=== PATIENT | female | born 1940 | race Caucasian/White ===

== ENCOUNTER → 2016-10-30 | Outpatient (CLI) | payer BC ==
--- NOTE | 2016-10-30 07:40 | REP ---
Clinical: Renal cysts. Comparison: Ultrasound dated 04/29/2014. MRI dated 07/14/2014. Findings: The patient is again noted to be status post left nephrectomy with normal appearance to the left renal fossa. The right kidney measures 12.2 x 4.0 x 5.3 cm and appears echogenic without hydronephrosis. Multiple simple appearing right renal cysts identified with upper pole cyst measuring 2.1 cm maximal diameter, mid/lower pole cyst measuring 3.1 cm maximal diameter, and lower pole cyst measuring 6.1 cm maximal diameter. No obvious renal mass lesions or significant complex cyst identified. The bladder is unremarkable. There is a complex cystic lesion in the left adnexa measuring 3.2 x 2.3 x 2.2 cm which is otherwise nonspecific and may represent ovarian cyst. No pelvic free fluid. Impression: 1. Simple appearing right renal cysts up to 6.1 cm along with evidence for chronic medical renal disease and no evidence for hydronephrosis. 2. 3.2 cm complex cystic lesion in the left adnexa possibly ovarian in nature. Signed by Rey Alarcon MD 10/30/2016 07:32 A
== END ==
LOC: M RAD 06:52
PROVIDERS: ATTEND Internal Medicine Nephrology
DX: N18.3 Chronic kidney disease, stage 3 (moderate) (principal); I15.0 Renovascular hypertension; Z85.528 Personal history of other malignant neoplasm of kidney; N28.1 Cyst of kidney, acquired

== ENCOUNTER → 2017-01-18 | Outpatient (CLI) | payer BC ==
--- NOTE | 2017-01-18 11:19 | REP ---
Clinical: Left ovarian cyst. Technique: Transabdominal pelvic ultrasound followed by transvaginal examination for better evaluation of the endometrium and adnexa with color Doppler evaluation of the ovaries. Findings: Heterogeneous anteverted uterus measures 6.1 x 1.6 x 4.1 cm. The endometrial complex measures 1.6 mm thickness and findings are normal for post menopausal state. No discrete uterine or endometrial abnormalities appreciated. The bilateral ovaries are normal in vascularity without torsion. Right ovary measures 3.3 x 1.4 x 1.2 cm; RI equals 0.36. Left ovary measures 4.9 x 2.6 x 4.1 cm and includes a 3.5 cm septated complex cyst; RI equals 0.37. No pelvic fluid or adnexal mass lesion. Impression: Normal age appropriate uterus and endometrium. 3.5 cm complex septated left ovarian cyst. Signed by Rey Alarcon MD 01/18/2017 11:10 A
== END ==
LOC: M RAD 09:39
PROVIDERS: ATTEND Family Medicine
DX: N83.202 Unspecified ovarian cyst, left side (principal)

== ENCOUNTER → 2017-02-12 | Outpatient (CLI) | payer BC ==
[~2017-02-12] MED LIST: METHACHOLINE KIT (J7674) INH ONE
--- NOTE | 2017-02-12 08:16 | PFTRPT ---
Tech: Divina VICTOR RRT Age: 76 Sex: Female Race: Height: 59.50 Inches Weight: 169.00 Lbs BSA: 1.73 Diagnosis: R06.02 METHACHOLINE CHALLENGE REPORT: ORDERING PROVIDER: Sesar Jerez MD DATE OF SERVICE: 02/12/17 INTERPRETATION: The study was of excellent technical quality. Under protocol, methacholine was administered. At a dose of 0.025 mg (0.125 CDUs), a 22% decline in the FEV1 was noted. No PC20 was calculated. low rates returned to better than baseline post bronchodilator administration. IMPRESSION: Positive methacholine challenge study. MTDD
== END ==
LOC: M CARPUL 07:26
PROVIDERS: ATTEND Internal Medicine Pulmonary Disease
DX: R06.02 Shortness of breath (principal)
CPT/HCPCS: 94070; J7674

== ENCOUNTER → 2017-02-21 | Outpatient (CLI) | payer BC ==
--- NOTE | 2017-02-21 09:53 | REP ---
Chest two views HISTORY: Shortness of breath Comparison: 01/31/2015 A minimal increase in interstitial markings is present in the lungs consistent with chronic interstitial change. The heart is normal in size. The pulmonary vasculature is normal in appearance. Degenerative change is present in the thoracic spine. There is partial fusion of the thoracic vertebral bodies. IMPRESSION: Chronic interstitial change. Signed by Benson Peralta MD 02/21/2017 09:45 A
== END ==
LOC: M SMT 09:05
PROVIDERS: ATTEND Internal Medicine Pulmonary Disease
DX: R06.02 Shortness of breath (principal)

== ENCOUNTER → 2017-03-26 | Outpatient (CLI) | payer BC | LOC: M SMT 08:06 | PROVIDERS: ATTEND Family Medicine | DX: E03.9 Hypothyroidism, unspecified (principal); I10 Essential (primary) hypertension ==

== ENCOUNTER → 2017-04-16 | Outpatient (CLI) | payer BC ==
--- NOTE | 2017-04-16 13:29 | REP ---
MR LUMBAR SPINE WITHOUT CONTRAST: HISTORY: Back pain. Decreased signal intensity on T2-weighted images is present in the lumbar intervertebral discs. The discs are decreased in height. These findings are consistent with disc degeneration. Disc bulges are present at the T11-12 and T12-L1 levels. There is mild effacement of the thecal sac without spinal cord compression. The neural foramina are patent on sagittal images. A diffuse disc bulge is present at the L1-2 level. There is hypertrophy of the ligamenta flava and posterior articulating facets. These findings produce minimal central canal stenosis. The L1 nerves exit the neural foramina without compression. A diffuse disc bulge is present at the L2-3 level. There is hypertrophy of the ligamenta flava and the posterior articulating facets. There are 3 mm of grade 1 spondylolisthesis of L2 on 3. These findings produce mild central canal stenosis. The L2 nerves exit the neural foramina without compression. A diffuse disc bulge with associated osteophyte formation is present at the L3-4 level. There is hypertrophy of the ligamenta flava and posterior articulating facets. These findings produce minimal central canal stenosis. The L3 nerves exit the neural foramina without compression. A diffuse disc bulge with associated osteophyte formation is present at the L4-5 level. There is hypertrophy of the ligamenta flava and posterior articulating facets. These findings produce mild central canal stenosis. There is compression of the L4 nerves in the neural foramina. A diffuse disc bulge is present at the L5-S1 level. There is hypertrophy of the ligamenta flava and posterior articulating facets. These findings produce minimal central canal stenosis. There is compression of the L5 nerves in the neural foramina. The conus medullaris is normal in appearance terminating at the level of the T12-L1 intervertebral disc. Increased signal intensity on T2 weighted images is present in the endplates of the L2 through S1 vertebral bodies. This represents degenerative change. IMPRESSION: 1. Minimal central canal stenosis at the L1-2 and L5-S1 levels secondary to disc bulge ligamentous and facet hypertrophy. There is compression of the L5 nerves in the neural foramina. 2. Mild central canal stenosis at the L2-3 level secondary to disc bulge, ligamentous and facet hypertrophy and grade 1 spondylolisthesis. 3. Minimal central canal stenosis at the L3-4 level secondary to disc bugle, ligamentous and facet hypertrophy and osteophyte formation. 4. Mild central canal stenosis at the L4-5 level secondary to disc bulge, ligamentous and facet hypertrophy and osteophyte formation. There is compression of the L4 nerves in the neural foramina. Signed by Benson Peralta MD 04/16/2017 01:46 P
--- NOTE | 2017-04-16 13:34 | REP ---
MR SACRUM WITHOUT CONTRAST: HISTORY: Back pain. The L4-5 and L5-S1 intervertebral discs are decreased in height consistent with disc degeneration. A diffuse disc bulge is present at the L5-S1 level. There is hypertrophy of the ligamenta flava and posterior articulating facets. These findings produce minimal central canal stenosis. There is compression of the L5 nerves in the neural foramina. Increased signal intensity on T2-weighted images is present in the sacrum and right iliac bone adjacent to the sacroiliac joints. This represents degenerative change. IMPRESSION: Minimal central canal stenosis at the L5-S1 level secondary to disc bulge, ligamentous and facet hypertrophy. There is compression of the L5 nerves in the neural foramina. Signed by Benson Peralta MD 04/16/2017 01:47 P
== END ==
LOC: M RAD 09:32
PROVIDERS: ATTEND Internal Medicine Nephrology
DX: M54.5 Low back pain (principal)

== ENCOUNTER → 2017-04-18 | Outpatient (CLI) | payer BC ==
[2017-04-18 14:38] LABS: FREE T4 0.96 NG/DL (0.76-1.46)
== END ==
LOC: M SMT 09:12
PROVIDERS: ATTEND Family Medicine
DX: E03.9 Hypothyroidism, unspecified (principal)

== ENCOUNTER → 2017-06-14 | Outpatient (CLI) | payer BC ==
[2017-06-14 14:38] LABS: FREE T4 1.11 NG/DL (0.76-1.46)
== END ==
LOC: M SMT 08:04
PROVIDERS: ATTEND Physician Assistant Medical
DX: E03.9 Hypothyroidism, unspecified (principal)

== ENCOUNTER → 2017-12-05 | Outpatient (CLI) | payer BC ==
[2017-12-05 14:15] LABS: BLOOD UREA NITROGEN 31 MG/DL (7-18)
[2017-12-05 14:15] LABS: CREATININE FOR GFR 1.57 MG/DL (0.55-1.30); GLOMERULAR FILTRATION RATE 34.1 (>39)
== END ==
LOC: M SMT 08:16
DX: Z01.812 Encounter for preprocedural laboratory examination (principal)
CPT/HCPCS: 82565

== ENCOUNTER → 2018-03-25 | Outpatient (CLI) | payer BC ==
[2018-03-25 11:02] LABS: BASO % 0.4 % (0.0-1.0); EOS # 0.3 10^3/uL (0.0-0.50); EOS % 2.7 % (0.0-3.0); HEMATOCRIT 44.1 % (36.0-47.0); HEMOGLOBIN 13.9 g/dl (12.0-15.5); IMMATURE GRANULOCYTE % 0.3 % (0-3.0); LYMPH # 2.6 10^3/uL (1.5-4.5); LYMPH % 28.1 % (24.0-44.0); MEAN CORPUSCULAR HEMOGLOBIN 28.3 pg (27.0-33.0); MEAN CORPUSCULAR HGB CONC 31.5 g/dl (32.0-36.5); MEAN CORPUSCULAR VOLUME 89.6 fl (80.0-96.0); MONO # 0.4 10^3/uL (0.0-0.8); NEUTROPHILS # 5.9 10^3/uL (1.8-7.7); NEUTROPHILS % 64.5 % (36.0-66.0); PLATELET COUNT, AUTOMATED 300 10^3/uL (150-450); RED BLOOD COUNT 4.92 10^6/uL (4.00-5.40); RED CELL DISTRIBUTION WIDTH 13.8 % (11.5-14.5); WHITE BLOOD COUNT 9.2 10^3/uL (4.0-10.0)
[2018-03-25 12:34] LABS: ALBUMIN 4.1 GM/DL (3.2-5.2); ALKALINE PHOSPHATASE 85 U/L (45-117); ALT/SGPT 31 U/L (12-78); ANION GAP 9 MEQ/L (8-16); AST/SGOT 24 U/L (7-37); BILIRUBIN,TOTAL 0.4 MG/DL (0.2-1.0); BLOOD UREA NITROGEN 29 MG/DL (7-18); CALCIUM LEVEL 9.7 MG/DL (8.8-10.2); CARBON DIOXIDE LEVEL 27 MEQ/L (21-32); CHLORIDE LEVEL 104 MEQ/L (98-107); CHOLESTEROL LEVEL 185 MG/DL (<200); CREATININE FOR GFR 1.81 MG/DL (0.55-1.30); FREE T4 1.11 NG/DL (0.76-1.46); GLOMERULAR FILTRATION RATE 28.9 (>39); GLUCOSE, FASTING 84 MG/DL (70-100); HDL CHOLESTEROL 53 MG/DL (>40); LDL CHOLESTEROL 94 MG/DL (<100); NON-HDL-C 132 MG/DL; SODIUM LEVEL 140 MEQ/L (136-145); TOTAL PROTEIN 7.3 GM/DL (6.4-8.2); TRIGLYCERIDES LEVEL 191 MG/DL (<150)
[2018-03-25 15:50] LABS: ALBUMIN/GLOBULIN RATIO 1.28 (1.00-1.93)
[2018-03-25 16:05] LABS: URIC ACID 5.1 MG/DL (2.6-6.0)
== END ==
LOC: M SMT 08:36
DX: I10 Essential (primary) hypertension (principal); E03.9 Hypothyroidism, unspecified; M10.9 Gout, unspecified
CPT/HCPCS: 84443

== ENCOUNTER 2018-04-24 07:10 | Day surgery (SDC) | payer BC ==
[2018-04-24] MEDS: NS 1,000 ML IV (06:00)
[2018-04-24] MEDS ORDERED: PROPOFOL 200 MG/20 ML VIAL As Ordered (07:16)
[2018-04-24] MEDS ORDERED: fentaNYL 100 MCG/2 ML INJECTION (J3010) As Ordered (07:16)
[2018-04-24] MEDS ORDERED: LIDOCAINE 2% INJ 100 MG/5 ML SDV (FOR ANES.) As Ordered (07:16)
== END 2018-04-24 08:35 | disposition home or self-care (01) ==
LOC: M OPP 07:10
DX: Z12.11 Encounter for screening for malignant neoplasm of colon (principal); Z86.010 Personal history of colon polyps; D12.5 Benign neoplasm of sigmoid colon; D12.3 Benign neoplasm of transverse colon; D12.0 Benign neoplasm of cecum; D12.1 Benign neoplasm of appendix; K57.30 Diverticulosis of large intestine without perforation or abscess without bleeding; R13.10 Dysphagia, unspecified; K44.9 Diaphragmatic hernia without obstruction or gangrene; K31.89 Other diseases of stomach and duodenum; I10 Essential (primary) hypertension; E78.5 Hyperlipidemia, unspecified; M10.9 Gout, unspecified; E03.9 Hypothyroidism, unspecified; M19.90 Unspecified osteoarthritis, unspecified site; F41.9 Anxiety disorder, unspecified; R51 Headache; Z78.0 Asymptomatic menopausal state; J45.909 Unspecified asthma, uncomplicated; J44.9 Chronic obstructive pulmonary disease, unspecified; R06.83 Snoring; R06.02 Shortness of breath; G47.30 Sleep apnea, unspecified; N28.1 Cyst of kidney, acquired; Z85.528 Personal history of other malignant neoplasm of kidney; Z90.5 Acquired absence of kidney; Z98.1 Arthrodesis status; Z87.891 Personal history of nicotine dependence; Z88.8 Allergy status to other drugs, medicaments and biological substances; Z88.5 Allergy status to narcotic agent; Z79.899 Other long term (current) drug therapy
CPT/HCPCS: 45385

== ENCOUNTER → 2018-06-02 | Outpatient (REF) | payer BC ==
[2018-06-02 19:02] LABS: TOTAL PROTEIN 7.2 GM/DL (6.4-8.2)
[2018-06-02 19:05] LABS: CREATININE,RANDOM URINE 47.2 MG/DL; TOTAL PROTEIN,RANDOM URINE 314.2 MG/DL (0.0-12.0); URINE TOTAL PROTEIN 314.2 MG/DL (0-12)
[2018-06-03 13:43] LABS: ALBUMIN % 60.8 % (55.8-66.1); ALPHA-1-GLOBULIN % 4.5 % (2.9-4.9); ALPHA-2-GLOBULINS % 12.1 % (7.1-11.8); BETA-2-GLOBULINS % 4.2 % (3.2-6.5); GAMMA GLOBULIN % 12.4 % (11.1-18.8)
[2018-06-03 13:44] LABS: ALBUMIN 4.38 GM/DL (3.29-5.55); ALPHA-1-GLOBULINS 0.32 GM/DL (0.17-0.41); ALPHA-2-GLOBULINS 0.87 GM/DL (0.42-0.99); BETA-1-GLOBULINS 0.43 GM/DL (0.28-0.60); GAMMA GLOBULINS 0.89 GM/DL (0.65-1.58)
[2018-06-04 08:59] LABS: UPEP INTERPRETATION NO M-SPIKE NOTED; URINE VOLUME RANDOM ML
[2018-06-05 00:42] LABS: FREE KAPPA LIGHT CHAINS SERUM 37.8 mg/L (3.3-19.4); FREE LAMBDA LIGHT CHAINS SERUM 21.5 mg/L (5.7-26.3); KAPPA/LAMBDA RATIO SERUM 1.76 (0.26-1.65)
== END ==
LOC: M LAB REF 17:17
DX: R80.9 Proteinuria, unspecified (principal)

== ENCOUNTER → 2018-09-15 | Outpatient (REF) | payer BC ==
[~2018-09-15] MED LIST changes: +ALLO10TA PO; +ARNU1INH; +ATOR1TAB21 PO; +CALCCHW8 PO; +CART120C PO; +FISH120016 PO; +LEVO100T5 PO; +LOSA100T50 PO; +MAGN250T7 PO; -METHACHOLINE KIT (J7674) INH ONE; +MULT1TAB10 PO; +TURM500C PO; +VENL75CA47 PO; +VENTAER INH
[2018-09-15 13:47] LABS: COMPLEMENT C3 110 MG/DL (90-180); COMPLEMENT C4 26 MG/DL (10-40)
[2018-09-15 13:59] LABS: HEPATITIS B SURFACE ANTIBODY NEGATIVE (POSITIVE)
[2018-09-15 15:14] LABS: HEPATITIS B SURFACE ANTIGEN NEGATIVE (NEGATIVE)
[2018-09-15 15:39] LABS: HEPATITIS C VIRUS ABY INDEX < 0.0 INDEX (<0.8)
[2018-09-15 15:41] LABS: HEPATITIS B CORE ANTIBODY IGM NEGATIVE (NEGATIVE)
[2018-09-19 00:07] LABS: ANCA-ATYPICAL <1:20 titer (Neg:<1:20); ANTI DOUBLE STRAND-DNA AB <1 IU/mL (0-9); ANTINUCLEAR ANTIBODIES DIRECT Negative (Negative); CYTOPLASMIC NEUTROP AB ANCA-C <1:20 titer (Neg:<1:20); PERINUCLEAR AB ANCA-P <1:20 titer (Neg:<1:20)
== END ==
LOC: M LAB REF 13:15
PROVIDERS: ATTEND Internal Medicine Nephrology
DX: R80.9 Proteinuria, unspecified (principal)

== ENCOUNTER → 2018-09-19 | Outpatient (REF) | payer BC ==
[2018-09-19 14:56] LABS: CREATININE 24 HOUR, URINE 923.8 MG/24HR (600-1800); CREATININE, URINE 74.5 MG/DL; TOTAL PROTEIN 24 HOUR URINE 2332.4 MG/24HR (50-150); URINE TOTAL PROTEIN 188.1 MG/DL (0-12)
== END ==
LOC: M LAB REF 13:15
PROVIDERS: ATTEND Internal Medicine Nephrology
DX: R80.9 Proteinuria, unspecified (principal)

== ENCOUNTER → 2019-03-18 | Outpatient (REF) | payer BC ==
[2019-03-18 14:44] LABS: CHOLESTEROL RISK RATIO 3.217 (<5); FREE T4 1.29 NG/DL (0.76-1.46)
[2019-03-18 14:51] LABS: TOTAL T3 85.5 NG/DL (60.0-181.0)
== END ==
LOC: M LAB REF 13:48
PROVIDERS: ATTEND Family Medicine
DX: I10 Essential (primary) hypertension (principal); E03.9 Hypothyroidism, unspecified

== ENCOUNTER → 2019-07-23 | Outpatient (CLI) | payer BC ==
--- NOTE | 2019-07-24 02:54 | REP ---
Clinical: Renal cyst. Technique: Real time petersen scale and color evaluation using curved array transducer. Findings: The patient is known to be status post left nephrectomy. The right kidney measures 12.6 x 5.2 x 5.7 cm and appears hyperechoic suggesting chronic medical renal disease without hydronephrosis. Two cortical cysts are identified measuring 3.5 cm and 6.5 cm diameter each. There is a 3.8 x 3.6 x 3.6 cm solid appearing mass along the lower pole which is concerning for neoplasm. Impression: 1. Cannot exclude 3.8 cm mass along the lower pole of the right kidney. 2. Two right simple cysts noted measuring 3.5 cm and 6.5 cm diameter. Electronically Signed by Rey Alarcon MD 07/24/2019 02:46 A
== END ==
LOC: M RAD 13:11
PROVIDERS: ATTEND Nurse Practitioner Family
DX: N28.1 Cyst of kidney, acquired (principal); Z90.5 Acquired absence of kidney; Z85.528 Personal history of other malignant neoplasm of kidney

== ENCOUNTER → 2019-08-01 | Outpatient (CLI) | payer BC ==
--- NOTE | 2019-08-04 16:48 | REP ---
MRI of the abdomen and kidneys without contrast: History: 3.8 cm mass lower pole right kidney on ultrasound. Past medical history of renal cell carcinoma status post left nephrectomy. Comparison MRI study abdomen without and with contrast is from September 16, 2015. Technique: Axial and coronal T1 and T2-weighted scans were obtained with and without fat saturation in the usual fashion. Findings: The patient is status post left nephrectomy. There is broad-based post nephrectomy bulging of the left flank. There is left colonic diverticulosis. There is no evidence of mass or adenopathy in the nephrectomy bed. There are multiple right renal cysts most of which are simple and all of which are stable when compared with the the 2016 prior study. There are two complex lesions in the right kidney. These demonstrate low T2 and slightly increased T1 signal intensity. The larger of these measures 3.8 cm in diameter. There is a little larger having measured 3.2 cm in 2016. It is otherwise unchanged. The smaller measures 2.4 cm. Previously in 2016 this measured 1.9 cm in greatest diameter. It is otherwise unchanged . These are consistent with complex cysts. No mass lesion is observed. The largest simple cyst is in the lower pole measuring 6.8 cm in greatest diameter. Previously, this was 6.5 cm by my measurement. There is no evidence of lymphadenopathy. The study is otherwise unremarkable. The gallbladder surgically absent. Common bile duct is 9 mm in greatest diameter. No pancreatic or adrenal lesion is seen. T2-weighted scans demonstrate incidental note of a bilobed cystic lesion in the left adnexa with overall dimension of 5.3 cm. Consider pelvic sonography for further evaluation of this area. This is slightly more prominent than on the 2016 prior study as well. Impression: The previously noted complex cystic lesions in the right kidney have grown slightly in the interval since the 2016 prior study. There are multiple simple cysts in the right kidney. The patient is status post left nephrectomy. There is a bilobed cystic mass in the left ovary noted incidentally. Consider pelvic sonography. Electronically Signed by Luis Rogel MD 08/04/2019 04:38 P
== END ==
LOC: M RAD 11:23
PROVIDERS: ATTEND Nurse Practitioner Family
DX: D41.01 Neoplasm of uncertain behavior of right kidney (principal)

== ENCOUNTER → 2019-08-26 | Outpatient (REF) | payer BC ==
[2019-08-26 15:10] LABS: PERCENT SATURATION 17.6 % (13.2-45.0)
== END ==
LOC: M LAB REF 13:06
PROVIDERS: ATTEND Nurse Practitioner Family
DX: D50.9 Iron deficiency anemia, unspecified (principal)

== ENCOUNTER → 2020-11-08 | Outpatient (CLI) | payer BC, MEDICARE ==
--- NOTE | 2020-11-08 13:10 | REP ---
INDICATION: CYST OF KIDNEY. COMPARISON: 07/23/2019. TECHNIQUE: Real-time sonographic evaluation of the right kidney is performed. FINDINGS: There has been a left nephrectomy. There is no right hydronephrosis. The right kidney measures 14.8 x 6.9 x 6.2 cm. In the upper pole of the right kidney there are 2 anechoic simple benign cysts, measuring 3.8 x 3.5 x 3.8 cm and 6.2 x 6.0 x 5.7 cm. In the lower pole the right kidney there is a hypoechoic mass which measures approximately 3.7 cm in diameter. There is internal blood flow with Doppler evaluation. This is unchanged since the prior ultrasound. This is suspicious for renal cell carcinoma. There is an adjacent hypoechoic nodule which measures 2.7 x 2.8 x 3.1 cm. Correlating with the MRI of 08/01/2019 this probably represents a complex cyst. The urinary bladder is unremarkable. Ureteral jets are not visualized in the urinary bladder with Doppler color evaluation. There is no gross abnormality in the region of the left renal fossa. IMPRESSION: Solid mass lower pole right kidney suspicious for renal cell carcinoma 3.7 cm in diameter. Adjacent hypoechoic nodule is felt to most likely represent a complex cyst. Two simple benign cysts are seen in the upper pole of the right kidney. There is no right hydronephrosis. <Electronically signed by Chalino De Luna > 11/08/20 1531
== END ==
LOC: M RAD 11:25
PROVIDERS: ATTEND Nurse Practitioner Family
DX: N28.1 Cyst of kidney, acquired (principal); Z90.5 Acquired absence of kidney; N28.89 Other specified disorders of kidney and ureter

== ENCOUNTER → 2020-12-23 | Outpatient (CLI) | payer MEDICARE ==
--- NOTE | 2020-12-23 15:56 | REPMRS ---
Patient History The patient states she has not had a clinical breast exam in over a year. Patient is postmenopausal and has history of other cancer at age 65. No known family history of cancer. Patient states no breast complaints today. Patient has signed MRS History Sheet. Digital Woman Screen Mammo: December 23, 2020 - Exam #: [id number] Bilateral CC and MLO view(s) were taken. Technologist: Sherry Wellington Technologist Prior study comparison: December 02, 2019, bilateral digital mammo screening bilat, performed at [facility] [employer]. November 10, 2018, bilateral digital mammo screening bilat, performed at [facility] [employer]. November 08, 2017, bilateral digital mammo screening bilat, performed at [facility] [employer]. FINDINGS: There are scattered fibroglandular densities. Screening. Digital screening (2D) mammography was performed bilaterally in the CC and MLO projections. Additionally, breast tomosynthesis (3D mammography) was performed bilaterally in the CC and MLO projections. Todays exam was compared to the prior exam/exams. By history, the patient has no complaints of a palpable breast abnormality or other significant breast complaints. The breasts are unchanged in size and shape. There are no altaf-soft tissue densities or spiculated masses. There is no internal architectural distortion. Once again, stable benign appearing calcifications are seen.There are no suspicious altaf-calcific clusters. Skin thickening or nipple retraction is not present. IMPRESSION: BI-RADS Category 2- Benign Findings. There is no evidence of malignant alteration of the breasts. Followup examination recommended in one year. The Volpara volumetric breast density category is B, there are scattered areas of fibroglandular density. This mammogram was read with the assistance of [facility],an FDA approved computer aided detection system for mammography. The lifetime Tyrer-Cuzick score is 1.7% Negative x-ray reports should not delay surgical consultation if a dominant or clinically suspicious mass is present. Not all breast cancers can be identified by mammography. Therefore, we recommend that you continue to perform regular breast self-examination and physical examination and then promptly contact your physician of any concerns or changes. Adenosis and dense breasts may obscure an underlying neoplasm. Assessment: BI-RADS/ACR category 2 mammogram. Benign Findings. Recommendation Routine screening mammogram of both breasts in 1 year. Electronically Signed By: Luke Villafana DO 12/23/20 1808
== END ==
LOC: M WHC 14:16
PROVIDERS: ATTEND Family Medicine
DX: Z12.31 Encounter for screening mammogram for malignant neoplasm of breast (principal); Z85.9 Personal history of malignant neoplasm, unspecified; R92.1 Mammographic calcification found on diagnostic imaging of breast

== ENCOUNTER → 2021-03-08 | Outpatient (REF) | payer MEDICARE | LOC: M LAB REF 16:53 | PROVIDERS: ATTEND Nurse Practitioner Family | DX: E83.42 Hypomagnesemia (principal) ==

== ENCOUNTER → 2021-06-14 | Outpatient (REF) | payer MEDICARE ==
[~2021-06-14] MED LIST changes: +AMLO1TAB25 PO; +CLAR10CA3 PO; +CVS1CAP2 PO; +FAMO40TA3 PO; +FLON1SPR NARES; +FLUT1BLS4 INH; +HYDR-3490 PO; +LOSA100T45 PO; -LOSA100T50 PO; +MAGN64TASA PO; +METO1TAB32 PO; +RENATAB6 PO
== END ==
LOC: M LAB REF 12:38
PROVIDERS: ATTEND Nurse Practitioner Family
DX: E83.42 Hypomagnesemia (principal)

== ENCOUNTER → 2021-07-05 | Outpatient (CLI) | payer MEDICARE ==
[~2021-07-05] MED LIST changes: +FLUT1BLS4; -FLUT1BLS4 INH; -LOSA100T45 PO; +LOSA100T50 PO; +MAGN64TASA; -MAGN64TASA PO; +METO1TAB32; -METO1TAB32 PO; +RENATAB6; -RENATAB6 PO
== END ==
LOC: M LABSMTC 10:14
PROVIDERS: ATTEND Anesthesiology
DX: Z01.812 Encounter for preprocedural laboratory examination (principal); Z20.822 Contact with and (suspected) exposure to COVID-19

== ENCOUNTER 2021-07-10 11:44 | Day surgery (SDC) | payer MEDICARE ==
[~2021-07-10] VITALS: Ht 152.4 cm; Wt 79.3 kg
[~2021-07-10 11:44] MED LIST changes: +CYCLOPENTOLATE 1% OPHTH SOLN 2 ML BTL OS SCH; -FLUT1BLS4; +FLUT1BLS4 INH; +LIDOCAINE 1% SDV 5ML VIAL As Ordered ONE; +LOSA100T45 PO; -LOSA100T50 PO; +LR 1,000 ML IV SCH; -MAGN64TASA; +MAGN64TASA PO; -METO1TAB32; +METO1TAB32 PO; +PHENYLEPHRINE 2.5% OPHTH SOL 2ML OS SCH; -RENATAB6; +RENATAB6 PO; +TETRACAINE 0.5% OPHTH SOLN 4ML OS SCH; +UNRESOLVED CLARIFICATION ENTRY XX SCH
[2021-07-10] MEDS ORDERED: FLURBIPROFEN 0.03% OPHTH SOLN 2.5 ML OS SCH (13:30)
[2021-07-10] MEDS ORDERED: MIDAZOLAM INJ 2MG/2ML VIAL (J2250 PER 1MG) As Ordered ONE (14:53)
[2021-07-10] MEDS ORDERED: fentaNYL 100 MCG/2 ML INJECTION As Ordered ONE (14:53)
[2021-07-10 15:30] VITALS: BP 171/80
== END 2021-07-10 15:45 | disposition home or self-care (01) ==
LOC: M SDC 11:44
PROVIDERS: ATTEND Ophthalmology
DX: H25.12 Age-related nuclear cataract, left eye (principal); I10 Essential (primary) hypertension; J45.909 Unspecified asthma, uncomplicated; G47.33 Obstructive sleep apnea (adult) (pediatric); E03.9 Hypothyroidism, unspecified; K21.9 Gastro-esophageal reflux disease without esophagitis; F41.9 Anxiety disorder, unspecified; Z79.899 Other long term (current) drug therapy; Z79.51 Long term (current) use of inhaled steroids; Z88.5 Allergy status to narcotic agent; Z88.8 Allergy status to other drugs, medicaments and biological substances
CPT/HCPCS: 66984; J2250; J3010; V2632

== ENCOUNTER 2021-07-31 08:38 | Day surgery (SDC) | payer MEDICARE ==
[~2021-07-31] VITALS: Ht 152.4 cm; Wt 80.3 kg
[~2021-07-31 08:38] MED LIST changes: -CYCLOPENTOLATE 1% OPHTH SOLN 2 ML BTL OS SCH; +DUOVISC (0.50ML VISCOAT/0.85ML PROVISC) OPHTH KIT As Ordered ONE; +MIDAZOLAM INJ 2MG/2ML VIAL (J2250 PER 1MG) As Ordered ONE; -PHENYLEPHRINE 2.5% OPHTH SOL 2ML OS SCH; -TETRACAINE 0.5% OPHTH SOLN 4ML OS SCH; -UNRESOLVED CLARIFICATION ENTRY XX SCH; +fentaNYL 100 MCG/2 ML INJECTION (J3010) As Ordered ONE
[2021-07-31] MEDS: TETRACAINE 0.5% OPHTH SOLN 4ML OD SCH ×2 (10:24→10:25)
[2021-07-31] MEDS: FLURBIPROFEN 0.03% OPHTH SOLN 2.5 ML OD SCH ×2 (10:25→10:39)
[2021-07-31] MEDS: PHENYLEPHRINE 2.5% OPHTH SOL 2ML OD SCH ×2 (10:25→10:39)
[2021-07-31] MEDS: CYCLOPENTOLATE 1% OPHTH SOLN 2 ML BTL OD SCH ×2 (10:25→10:39)
[2021-07-31 12:28] VITALS: BP 146/76
== END 2021-07-31 12:28 | disposition home or self-care (01) ==
LOC: M SDC 08:38
PROVIDERS: ATTEND Ophthalmology
DX: H25.11 Age-related nuclear cataract, right eye (principal); I10 Essential (primary) hypertension; E78.5 Hyperlipidemia, unspecified; K21.9 Gastro-esophageal reflux disease without esophagitis; E03.9 Hypothyroidism, unspecified; M10.9 Gout, unspecified; G43.909 Migraine, unspecified, not intractable, without status migrainosus; J45.909 Unspecified asthma, uncomplicated; G47.33 Obstructive sleep apnea (adult) (pediatric); Z88.5 Allergy status to narcotic agent; Z88.8 Allergy status to other drugs, medicaments and biological substances; Z79.899 Other long term (current) drug therapy; Z85.528 Personal history of other malignant neoplasm of kidney
CPT/HCPCS: 66984; J2250; J3010; V2632

== ENCOUNTER → 2022-05-25 | Outpatient (CLI) | payer MEDICARE ==
[~2022-05-25] MED LIST changes: -DUOVISC (0.50ML VISCOAT/0.85ML PROVISC) OPHTH KIT As Ordered ONE; -LIDOCAINE 1% SDV 5ML VIAL As Ordered ONE; -LR 1,000 ML IV SCH; -MIDAZOLAM INJ 2MG/2ML VIAL (J2250 PER 1MG) As Ordered ONE; -fentaNYL 100 MCG/2 ML INJECTION (J3010) As Ordered ONE
== END ==
LOC: M WHC 09:22
PROVIDERS: ATTEND Family Medicine
DX: Z12.31 Encounter for screening mammogram for malignant neoplasm of breast (principal); R92.1 Mammographic calcification found on diagnostic imaging of breast; M85.851 Other specified disorders of bone density and structure, right thigh; M85.852 Other specified disorders of bone density and structure, left thigh

== ENCOUNTER → 2022-06-11 | Outpatient (CLI) | payer MEDICARE | LOC: M LABSMTC 11:20 | PROVIDERS: ATTEND Anesthesiology | DX: Z01.812 Encounter for preprocedural laboratory examination (principal); Z11.52 Encounter for screening for COVID-19 ==

== ENCOUNTER 2022-06-14 08:31 | Day surgery (SDC) | payer MEDICARE ==
[~2022-06-14] VITALS: Ht 144.8 cm; Wt 70.7 kg
[~2022-06-14 08:31] MED LIST changes: +NS 1,000 ML IV ONE
[2022-06-14] MEDS ORDERED: LIDOCAINE 2% 100MG/5ML SDV (FOR ANES.) As Ordered ONE (09:35)
[2022-06-14] MEDS ORDERED: propofoL 200 MG/20 ML VIAL As Ordered ONE ×2 (09:35→10:02)
[2022-06-14 10:57] VITALS: BP 144/77
== END 2022-06-14 10:57 | disposition home or self-care (01) ==
LOC: M OPP 08:31
PROVIDERS: ATTEND Surgery
DX: Z12.11 Encounter for screening for malignant neoplasm of colon (principal); Z86.010 Personal history of colon polyps; D12.6 Benign neoplasm of colon, unspecified; K29.70 Gastritis, unspecified, without bleeding; K22.4 Dyskinesia of esophagus; K44.9 Diaphragmatic hernia without obstruction or gangrene; G47.30 Sleep apnea, unspecified; I10 Essential (primary) hypertension; E78.00 Pure hypercholesterolemia, unspecified; J44.9 Chronic obstructive pulmonary disease, unspecified; E03.9 Hypothyroidism, unspecified; G43.909 Migraine, unspecified, not intractable, without status migrainosus; Z79.02 Long term (current) use of antithrombotics/antiplatelets; Z79.51 Long term (current) use of inhaled steroids; Z79.899 Other long term (current) drug therapy; Z98.84 Bariatric surgery status; Z88.6 Allergy status to analgesic agent; Z88.5 Allergy status to narcotic agent; Z87.891 Personal history of nicotine dependence

== ENCOUNTER 2022-11-11 13:20 | Inpatient (IN) | payer MEDICARE, OTHER ==
[~2022-11-11] VITALS: Ht 152.4 cm; Wt 70.4 kg
[~2022-11-11 13:20] MED LIST changes: -LOSA100T45 PO; +LOSA100T46 PO; -NS 1,000 ML IV ONE
[2022-11-11] MEDS ORDERED: PANTOPRAZOLE 40MG VIAL IV ONE (14:10)
[2022-11-11 14:16] LABS: BASO % 0.2 % (0.0-1.0); EOS % 0.3 % (0.0-3.0); HEMATOCRIT 30.8 % (36.0-47.0); LYMPH # 1.6 10^3/uL (1.5-5.0); LYMPH % 11.4 % (24.0-44.0); MEAN CORPUSCULAR HGB CONC 32.5 g/dl (32.0-36.5); MEAN CORPUSCULAR VOLUME 89.3 fl (80.0-96.0); MONO # 0.3 10^3/uL (0.0-0.8); MONO % 2.3 % (2.0-8.0); NEUTROPHILS # 11.9 10^3/uL (1.5-8.5); NEUTROPHILS % 85.5 % (36.0-66.0); PLATELET COUNT, AUTOMATED 310 10^3/uL (150-450); RED BLOOD COUNT 3.45 10^6/uL (4.00-5.40)
[2022-11-11 14:41] LABS: INR 1.06; PARTIAL THROMBOPLASTIN TIME 30.2 SECONDS (24.8-34.2)
[2022-11-11 15:00] LABS: RSV AMPLIFICATION NEGATIVE (NEGATIVE)
[2022-11-11 15:23] LABS: THYROID STIMULATING HORMONE 0.136 uIU/ML (0.55-4.78)
[2022-11-11 16:27] LABS: CK-MB VALUE MASS 1.4 NG/ML (<3.6); MB/CK RELATIVE INDEX 2.54 (< OR =4)
[2022-11-11 16:29] LABS: ALBUMIN 3.7 G/DL (3.2-5.2); BILIRUBIN,DIRECT 0.1 MG/DL (<0.4); BILIRUBIN,TOTAL 0.3 MG/DL (0.3-1.2); CALCIUM LEVEL 9.2 MG/DL (8.3-10.6); CREATININE FOR GFR 2.69 MG/DL (0.55-1.30); GLOMERULAR FILTRATION RATE 18.1 (>32); POTASSIUM SERUM 3.9 MMOL/L (3.5-5.1)
[2022-11-11] MEDS ORDERED: NS 500 ML IV ONE (16:35)
[2022-11-11] MEDS ORDERED: NS 1,000 ML IV SCH ×2 (16:35→18:30)
[2022-11-11 16:44] LABS: TOTAL PROTEIN 6.5 G/DL (5.7-8.2)
[2022-11-11] MEDS ORDERED: ACETAMINOPHEN TAB 650MG DOSE (2X325MG) PO PRN (18:15)
[2022-11-11 19:40] VITALS: BP 138/94
[2022-11-11] MEDS ORDERED: FAMO20TA5 PO (19:49)
[2022-11-11] MEDS ORDERED: LEVO88TA3 PO (19:49)
[2022-11-11] MEDS ORDERED: AMLO1TAB24 PO (19:49)
[2022-11-11] MEDS ORDERED: HOME MED LIST COMPLETE! XX SCH (19:50)
[2022-11-11] MEDS: metroNIDAZOLE 500 MG in IV 1 EA IV SCH (20:21)
[2022-11-11] MEDS: cefTRIAXone SOD 2 GM in D5W MINI-BAG PLUS 50 ML IV SCH (20:21)
[2022-11-11] MEDS: PANTOPRAZOLE 40MG VIAL IV SCH (20:21)
[2022-11-11] MEDS ORDERED: ALBUTEROL 90 MCG/ACT 8GM HFA INHALER INH PRN (21:35)
[2022-11-11 23:57] VITALS: BP 123/58
[2022-11-12] VITALS (9 sets, daily range): BP systolic 113–159; BP diastolic 55–70
[2022-11-12] MEDS: LEVOTHYROXINE 88MCG TABLET (0.088 MG) PO SCH (04:58)
[2022-11-12] MEDS: metroNIDAZOLE 500 MG in IV 1 EA IV SCH ×3 (04:58→20:28)
[2022-11-12 05:48] LABS: HEMATOCRIT 24.7 % (36.0-47.0); MEAN CORPUSCULAR HEMOGLOBIN 28.3 pg (27.0-33.0); MEAN CORPUSCULAR HGB CONC 31.6 g/dl (32.0-36.5); MEAN CORPUSCULAR VOLUME 89.5 fl (80.0-96.0); PLATELET COUNT, AUTOMATED 240 10^3/uL (150-450); RED BLOOD COUNT 2.76 10^6/uL (4.00-5.40); WHITE BLOOD COUNT 9.5 10^3/uL (4.0-10.0)
[2022-11-12 05:53] LABS: HEMOGLOBIN 7.8 g/dl (12.0-15.5)
[2022-11-12 06:25] LABS: BILIRUBIN,TOTAL 0.3 MG/DL (0.3-1.2); CALCIUM LEVEL 8.2 MG/DL (8.3-10.6); CREATININE FOR GFR 2.67 MG/DL (0.55-1.30); GLOMERULAR FILTRATION RATE 18.2 (>32); POTASSIUM SERUM 3.5 MMOL/L (3.5-5.1); TOTAL PROTEIN 5.6 G/DL (5.7-8.2)
[2022-11-12] MEDS: ADVAIR HFA 115/21MCG INHALER INH SCH ×2 (08:09→19:23)
[2022-11-12] MEDS: PANTOPRAZOLE 40MG VIAL IV SCH ×2 (09:21→20:28)
[2022-11-12] MEDS: VENLAFAXINE **XR** 75MG CAPSULE PO SCH (09:22)
[2022-11-12] MEDS: LACTOBACILLUS ACIDOPHILUS CAP (BACID) PO SCH (09:22)
[2022-11-12] MEDS: METOPROLOL SUCC *XL* 25MG TAB (TopROL *XL*) PO SCH (09:22)
[2022-11-12] MEDS: allopurinoL 100 MG TAB PO SCH (09:22)
[2022-11-12] MEDS: amLODIPine 5 MG TAB PO SCH (09:23)
[2022-11-12] MEDS: ATORVASTATIN 20 MG TAB PO SCH (09:24)
[2022-11-12 14:07] LABS: HEMATOCRIT 27.2 % (36.0-47.0); HEMOGLOBIN 8.9 g/dl (12.0-15.5)
[2022-11-12 14:29] LABS: THYROID STIMULATING HORMONE 0.067 uIU/ML (0.55-4.78)
[2022-11-12 14:30] LABS: FREE THYROXINE INDEX 4.4 % (1.3-4.8); T UPTAKE 49.9 % (22.5-37.0); THYROXINE (T4) 8.9 UG/DL (4.5-10.9)
[2022-11-12] MEDS: FAMOTIDINE 20 MG TAB PO SCH (20:28)
[2022-11-12] MEDS: cefTRIAXone SOD 2 GM in D5W MINI-BAG PLUS 50 ML IV SCH (20:29)
[2022-11-13] VITALS: BP 122/68
[2022-11-13 01:07] LABS: HEMOGLOBIN 8.4 g/dl (12.0-15.5)
[2022-11-13 04:00] VITALS: BP 115/56
[2022-11-13 05:30] LABS: BASO % 0.5 % (0.0-1.0); EOS # 0.2 10^3/uL (0.0-0.5); EOS % 2.4 % (0.0-3.0); HEMATOCRIT 25.8 % (36.0-47.0); HEMOGLOBIN 8.4 g/dl (12.0-15.5); LYMPH # 1.9 10^3/uL (1.5-5.0); LYMPH % 22.4 % (24.0-44.0); MEAN CORPUSCULAR HEMOGLOBIN 29.2 pg (27.0-33.0); MEAN CORPUSCULAR HGB CONC 32.6 g/dl (32.0-36.5); MEAN CORPUSCULAR VOLUME 89.6 fl (80.0-96.0); MONO # 0.6 10^3/uL (0.0-0.8); MONO % 6.8 % (2.0-8.0); NEUTROPHILS # 5.6 10^3/uL (1.5-8.5); NEUTROPHILS % 67.5 % (36.0-66.0); PLATELET COUNT, AUTOMATED 210 10^3/uL (150-450); RED BLOOD COUNT 2.88 10^6/uL (4.00-5.40); WHITE BLOOD COUNT 8.4 10^3/uL (4.0-10.0)
[2022-11-13] MEDS: LEVOTHYROXINE 88MCG TABLET (0.088 MG) PO SCH (05:48)
[2022-11-13] MEDS: metroNIDAZOLE 500 MG in IV 1 EA IV SCH ×4 (05:48→21:14)
[2022-11-13 06:04] LABS: ALBUMIN 3.1 G/DL (3.2-5.2); ALKALINE PHOSPHATASE 57 U/L (46-116); ALT/SGPT 15 U/L (7.0-40); AST/SGOT 19 U/L (<34); BILIRUBIN,TOTAL 0.4 MG/DL (0.3-1.2); BLOOD UREA NITROGEN 45 MG/DL (9-23); CALCIUM LEVEL 8.4 MG/DL (8.3-10.6); CARBON DIOXIDE LEVEL 22 MMOL/L (20-31); CHLORIDE LEVEL 113 MMOL/L (98-107); CREATININE FOR GFR 2.72 MG/DL (0.55-1.30); GLOMERULAR FILTRATION RATE 17.9 (>32); GLUCOSE, FASTING 105 MG/DL (74-106); MAGNESIUM LEVEL 1.8 MG/DL (1.8-2.4); POTASSIUM SERUM 3.5 MMOL/L (3.5-5.1); SODIUM LEVEL 143 MMOL/L (136-145); TOTAL PROTEIN 5.1 G/DL (5.7-8.2)
[2022-11-13 07:54] VITALS: BP 119/57
[2022-11-13] MEDS: ADVAIR HFA 115/21MCG INHALER INH SCH ×2 (07:56→19:58)
[2022-11-13 08:16] LABS: IRON (FE) 57 UG/DL (50-170); PERCENT SATURATION 24.8 % (13.2-45.0); TOTAL IRON BINDING CAPACITY 230 UG/DL (250-425)
[2022-11-13 08:19] LABS: FERRITIN 105.3 NG/ML (7.3-270.7); FOLATE > 24.0 NG/ML (>5.4); VITAMIN B12 LEVEL 306 PG/ML (211-911)
[2022-11-13] MEDS: METOPROLOL SUCC *XL* 25MG TAB (TopROL *XL*) PO SCH (08:21)
[2022-11-13] MEDS: PANTOPRAZOLE 40MG VIAL IV SCH ×2 (08:21→20:29)
[2022-11-13] MEDS: ATORVASTATIN 20 MG TAB PO SCH (08:21)
[2022-11-13] MEDS: LACTOBACILLUS ACIDOPHILUS CAP (BACID) PO SCH (08:21)
[2022-11-13] MEDS: amLODIPine 5 MG TAB PO SCH (08:21)
[2022-11-13] MEDS: allopurinoL 100 MG TAB PO SCH (08:21)
[2022-11-13] MEDS: VENLAFAXINE **XR** 75MG CAPSULE PO SCH (08:21)
[2022-11-13] MEDS ORDERED: FLUBLOK(EGG FREE)(QUAD)INFLUENZA VACC 0.5ML SYRINGE 18YRS & OLDER IM.IMMUN ONE (09:00)
[2022-11-13 15:15] VITALS: BP 148/65
[2022-11-13 19:04] LABS: HEMATOCRIT 24.7 % (36.0-47.0); HEMOGLOBIN 8.1 g/dl (12.0-15.5); MEAN CORPUSCULAR HEMOGLOBIN 29.6 pg (27.0-33.0); MEAN CORPUSCULAR HGB CONC 32.8 g/dl (32.0-36.5); MEAN CORPUSCULAR VOLUME 90.1 fl (80.0-96.0); PLATELET COUNT, AUTOMATED 216 10^3/uL (150-450); RED BLOOD COUNT 2.74 10^6/uL (4.00-5.40); WHITE BLOOD COUNT 8.8 10^3/uL (4.0-10.0)
[2022-11-13] MEDS: FAMOTIDINE 20 MG TAB PO SCH (20:29)
[2022-11-13] MEDS: cefTRIAXone SOD 2 GM in D5W MINI-BAG PLUS 50 ML IV SCH (20:29)
[2022-11-13 21:20] VITALS: BP 117/66
[2022-11-14] VITALS (7 sets, daily range): BP systolic 118–167; BP diastolic 54–76
[2022-11-14 00:54] LABS: HEMATOCRIT 23.1 % (36.0-47.0); HEMOGLOBIN 7.4 g/dl (12.0-15.5)
[2022-11-14] MEDS: metroNIDAZOLE 500 MG in IV 1 EA IV SCH ×3 (05:40→20:33)
[2022-11-14] MEDS: LEVOTHYROXINE 88MCG TABLET (0.088 MG) PO SCH (05:40)
[2022-11-14 07:33] LABS: BASO # 0.1 10^3/uL (0.0-0.2); BASO % 0.6 % (0.0-1.0); EOS # 0.3 10^3/uL (0.0-0.5); HEMATOCRIT 28.5 % (36.0-47.0); LYMPH # 1.9 10^3/uL (1.5-5.0); LYMPH % 21.3 % (24.0-44.0); MEAN CORPUSCULAR HEMOGLOBIN 29.6 pg (27.0-33.0); MEAN CORPUSCULAR HGB CONC 33.3 g/dl (32.0-36.5); MEAN CORPUSCULAR VOLUME 88.8 fl (80.0-96.0); MONO # 0.5 10^3/uL (0.0-0.8); NEUTROPHILS # 6.1 10^3/uL (1.5-8.5); NEUTROPHILS % 68.9 % (36.0-66.0); PLATELET COUNT, AUTOMATED 215 10^3/uL (150-450); RED BLOOD COUNT 3.21 10^6/uL (4.00-5.40); WHITE BLOOD COUNT 8.9 10^3/uL (4.0-10.0)
[2022-11-14 07:50] LABS: HEMOGLOBIN 9.5 g/dl (12.0-15.5)
[2022-11-14 07:58] LABS: CREATININE FOR GFR 2.5 MG/DL (0.55-1.30); GLOMERULAR FILTRATION RATE 19.7 (>32); POTASSIUM SERUM 3.2 MMOL/L (3.5-5.1)
[2022-11-14] MEDS: METOPROLOL SUCC *XL* 25MG TAB (TopROL *XL*) PO SCH (07:59)
[2022-11-14] MEDS: LACTOBACILLUS ACIDOPHILUS CAP (BACID) PO SCH (07:59)
[2022-11-14] MEDS: VENLAFAXINE **XR** 75MG CAPSULE PO SCH (07:59)
[2022-11-14] MEDS: ATORVASTATIN 20 MG TAB PO SCH (07:59)
[2022-11-14] MEDS: PANTOPRAZOLE 40MG VIAL IV SCH ×2 (07:59→19:43)
[2022-11-14] MEDS: allopurinoL 100 MG TAB PO SCH (08:00)
[2022-11-14] MEDS: ADVAIR HFA 115/21MCG INHALER INH SCH ×2 (08:16→20:24)
[2022-11-14] MEDS ORDERED: GOLYTELY SOLN 4000 ML BTL PO ONE (09:00)
[2022-11-14] MEDS: cefTRIAXone SOD 2 GM in D5W MINI-BAG PLUS 50 ML IV SCH (19:44)
[2022-11-14] MEDS: FAMOTIDINE 20 MG TAB PO SCH (19:44)
[2022-11-14] MEDS ORDERED: ONDANSETRON 4MG 2ML VIAL IV PRN (20:25)
[2022-11-15] MEDS: metroNIDAZOLE 500 MG in IV 1 EA IV SCH ×3 (04:02→21:52)
[2022-11-15] MEDS: LEVOTHYROXINE 88MCG TABLET (0.088 MG) PO SCH (05:05)
[2022-11-15 05:58] VITALS: BP 155/72
[2022-11-15 06:20] LABS: BASO % 0.4 % (0.0-1.0); EOS # 0.2 10^3/uL (0.0-0.5); EOS % 3.1 % (0.0-3.0); HEMATOCRIT 24.1 % (36.0-47.0); HEMOGLOBIN 8.2 g/dl (12.0-15.5); LYMPH # 1.8 10^3/uL (1.5-5.0); LYMPH % 23.2 % (24.0-44.0); MEAN CORPUSCULAR VOLUME 88.3 fl (80.0-96.0); MONO # 0.6 10^3/uL (0.0-0.8); MONO % 7.2 % (2.0-8.0); NEUTROPHILS # 5.1 10^3/uL (1.5-8.5); NEUTROPHILS % 65.6 % (36.0-66.0); PLATELET COUNT, AUTOMATED 197 10^3/uL (150-450); RED BLOOD COUNT 2.73 10^6/uL (4.00-5.40); WHITE BLOOD COUNT 7.7 10^3/uL (4.0-10.0)
[2022-11-15 07:07] LABS: CALCIUM LEVEL 8.2 MG/DL (8.3-10.6); CREATININE FOR GFR 2.45 MG/DL (0.55-1.30); GLOMERULAR FILTRATION RATE 20.1 (>32); POTASSIUM SERUM 2.9 MMOL/L (3.5-5.1)
[2022-11-15] MEDS: ADVAIR HFA 115/21MCG INHALER INH SCH ×2 (07:12→19:51)
[2022-11-15] MEDS ORDERED: POTASSIUM CHLORIDE 10MEQ SR TABLET PO ONE (08:00)
[2022-11-15] MEDS: PANTOPRAZOLE 40MG VIAL IV SCH ×2 (08:11→21:26)
[2022-11-15] MEDS: METOPROLOL SUCC *XL* 25MG TAB (TopROL *XL*) PO SCH (08:14)
[2022-11-15] MEDS: KCL 10MEQ/100ML SWI (KRUN) 10 MEQ in IV 1 EA IV SCH ×3 (08:14→10:16)
[2022-11-15] MEDS: ATORVASTATIN 20 MG TAB PO SCH (08:23)
[2022-11-15] MEDS: allopurinoL 100 MG TAB PO SCH (08:23)
[2022-11-15] MEDS: VENLAFAXINE **XR** 75MG CAPSULE PO SCH (08:23)
[2022-11-15] MEDS: LACTOBACILLUS ACIDOPHILUS CAP (BACID) PO SCH (08:23)
[2022-11-15] MEDS ORDERED: propofoL 200 MG/20 ML VIAL As Ordered ONE (13:52)
[2022-11-15] MEDS ORDERED: LIDOCAINE 2% 100MG/5ML SDV (FOR ANES.) As Ordered ONE (13:52)
[2022-11-15 15:10] VITALS: BP 146/72
[2022-11-15 18:27] LABS: BASO % 0.3 % (0.0-1.0); EOS # 0.2 10^3/uL (0.0-0.5); EOS % 2.1 % (0.0-3.0); HEMATOCRIT 27.8 % (36.0-47.0); HEMOGLOBIN 9.3 g/dl (12.0-15.5); LYMPH # 1.9 10^3/uL (1.5-5.0); LYMPH % 21.7 % (24.0-44.0); MEAN CORPUSCULAR HEMOGLOBIN 29.5 pg (27.0-33.0); MEAN CORPUSCULAR HGB CONC 33.5 g/dl (32.0-36.5); MEAN CORPUSCULAR VOLUME 88.3 fl (80.0-96.0); MONO # 0.6 10^3/uL (0.0-0.8); MONO % 6.4 % (2.0-8.0); NEUTROPHILS # 6.2 10^3/uL (1.5-8.5); NEUTROPHILS % 69.2 % (36.0-66.0); PLATELET COUNT, AUTOMATED 243 10^3/uL (150-450); RED BLOOD COUNT 3.15 10^6/uL (4.00-5.40)
[2022-11-15 18:44] LABS: CALCIUM LEVEL 8.3 MG/DL (8.3-10.6); CREATININE FOR GFR 2.29 MG/DL (0.55-1.30); GLOMERULAR FILTRATION RATE 21.8 (>32); POTASSIUM SERUM 3.4 MMOL/L (3.5-5.1)
[2022-11-15 20:30] VITALS: BP 104/58
[2022-11-15] MEDS: cefTRIAXone SOD 2 GM in D5W MINI-BAG PLUS 50 ML IV SCH (20:46)
[2022-11-15] MEDS: FAMOTIDINE 20 MG TAB PO SCH (20:46)
[2022-11-16 05:03] VITALS: BP 147/66
[2022-11-16] MEDS: LEVOTHYROXINE 88MCG TABLET (0.088 MG) PO SCH (05:14)
[2022-11-16] MEDS: metroNIDAZOLE 500 MG in IV 1 EA IV SCH (05:14)
[2022-11-16 06:17] LABS: BASO % 0.5 % (0.0-1.0); EOS # 0.3 10^3/uL (0.0-0.5); EOS % 3.2 % (0.0-3.0); HEMOGLOBIN 8.3 g/dl (12.0-15.5); LYMPH # 1.8 10^3/uL (1.5-5.0); LYMPH % 21.2 % (24.0-44.0); MEAN CORPUSCULAR HEMOGLOBIN 29.5 pg (27.0-33.0); MEAN CORPUSCULAR HGB CONC 33.2 g/dl (32.0-36.5); MONO # 0.6 10^3/uL (0.0-0.8); MONO % 7.3 % (2.0-8.0); NEUTROPHILS # 5.9 10^3/uL (1.5-8.5); NEUTROPHILS % 67.5 % (36.0-66.0); PLATELET COUNT, AUTOMATED 207 10^3/uL (150-450); RED BLOOD COUNT 2.81 10^6/uL (4.00-5.40); WHITE BLOOD COUNT 8.7 10^3/uL (4.0-10.0)
[2022-11-16 06:50] LABS: CALCIUM LEVEL 7.6 MG/DL (8.3-10.6); CREATININE FOR GFR 2.52 MG/DL (0.55-1.30); GLOMERULAR FILTRATION RATE 19.5 (>32); POTASSIUM SERUM 3.4 MMOL/L (3.5-5.1)
[2022-11-16] MEDS: ADVAIR HFA 115/21MCG INHALER INH SCH (07:24)
[2022-11-16] MEDS ORDERED: POTASSIUM CHLORIDE 10MEQ SR TABLET PO ONE (08:00)
[2022-11-16] MEDS: ATORVASTATIN 20 MG TAB PO SCH (08:09)
[2022-11-16] MEDS: PANTOPRAZOLE 40MG VIAL IV SCH (08:09)
[2022-11-16] MEDS: VENLAFAXINE **XR** 75MG CAPSULE PO SCH (08:10)
[2022-11-16] MEDS: LACTOBACILLUS ACIDOPHILUS CAP (BACID) PO SCH (08:10)
[2022-11-16] MEDS: allopurinoL 100 MG TAB PO SCH (08:10)
[2022-11-16 08:11] VITALS: BP 147/66
[2022-11-16] MEDS: METOPROLOL SUCC *XL* 25MG TAB (TopROL *XL*) PO SCH (08:11)
[2022-11-16] MEDS ORDERED: DOCU100C16 PO (09:15)
[2022-11-16] MEDS ORDERED: FERR325T3 PO (09:15)
== END 2022-11-16 12:35 | disposition home or self-care (01) | DRG 378 ==
LOC: M ED 13:20 → M ED INP 18:12 → M PCU 19:34 → M MSPAV 11-13 15:11
PROVIDERS: ADMIT Family Medicine; ATTEND Internal Medicine Nephrology
PROC: 30233N1 Transfusion of Nonautologous Red Blood Cells into Peripheral Vein, Percutaneous Approach (ICD-10-PCS; principal; 2022-11-12)
PROC: 0DJ08ZZ Inspection of Upper Intestinal Tract, Via Natural or Artificial Opening Endoscopic (ICD-10-PCS; 2022-11-15)
PROC: 0DJD8ZZ Inspection of Lower Intestinal Tract, Via Natural or Artificial Opening Endoscopic (ICD-10-PCS; 2022-11-15)
DX: K57.91 Diverticulosis of intestine, part unspecified, without perforation or abscess with bleeding (principal); N17.9 Acute kidney failure, unspecified; D62 Acute posthemorrhagic anemia; N18.4 Chronic kidney disease, stage 4 (severe); Z66 Do not resuscitate; K29.70 Gastritis, unspecified, without bleeding; K44.9 Diaphragmatic hernia without obstruction or gangrene; E79.0 Hyperuricemia without signs of inflammatory arthritis and tophaceous disease; F32.A Depression, unspecified; J45.909 Unspecified asthma, uncomplicated; K22.4 Dyskinesia of esophagus; E03.9 Hypothyroidism, unspecified; K64.8 Other hemorrhoids; D63.1 Anemia in chronic kidney disease; D12.6 Benign neoplasm of colon, unspecified; Z87.891 Personal history of nicotine dependence; R91.1 Solitary pulmonary nodule; I12.9 Hypertensive chronic kidney disease with stage 1 through stage 4 chronic kidney disease, or unspecified chronic kidney disease; E78.5 Hyperlipidemia, unspecified; Z79.890 Hormone replacement therapy; Z79.899 Other long term (current) drug therapy; Z88.5 Allergy status to narcotic agent; Z88.6 Allergy status to analgesic agent; Z88.8 Allergy status to other drugs, medicaments and biological substances; Z20.822 Contact with and (suspected) exposure to COVID-19; E87.6 Hypokalemia; Z90.5 Acquired absence of kidney

== ENCOUNTER 2023-03-07 21:17 | Emergency (ER) | payer MEDICARE ==
[~2023-03-07] VITALS: Ht 144.8 cm; Wt 68.6 kg
[~2023-03-07 21:17] MED LIST changes: +AMLO1TAB24 PO; +DOCU100C16 PO; +FAMO20TA5 PO; +FERR325T3 PO; +LEVO88TA3 PO
[2023-03-07] MEDS ORDERED: RENATAB6 PO (21:33)
[2023-03-08 02:04] VITALS: BP 147/64; TEMP 97.8; O2SAT 98
== END 2023-03-08 03:24 | disposition home or self-care (01) ==
LOC: M ED 21:17
DX: M25.561 Pain in right knee (principal); Z79.899 Other long term (current) drug therapy; Z88.8 Allergy status to other drugs, medicaments and biological substances; Z88.5 Allergy status to narcotic agent

== ENCOUNTER → 2023-05-28 | Outpatient (CLI) | payer MEDICARE | LOC: M WHC 13:37 | PROVIDERS: ATTEND Registered Nurse | DX: Z12.31 Encounter for screening mammogram for malignant neoplasm of breast (principal); R92.333 Mammographic heterogeneous density, bilateral breasts ==

== ENCOUNTER → 2024-04-03 | Outpatient (REF) | payer MEDICARE ==
[2024-04-03 18:09] LABS: FERRITIN 128.3 NG/ML (7.3-270.7); PERCENT SATURATION 28.7 % (13.2-45.0)
== END ==
LOC: M LAB REF 17:05
PROVIDERS: ATTEND Nurse Practitioner Family
DX: D64.9 Anemia, unspecified (principal)

== ENCOUNTER → 2024-05-05 | Outpatient (REF) | payer MEDICARE ==
[2024-05-05 20:02] LABS: FERRITIN 110.4 NG/ML (7.3-270.7)
== END ==
LOC: M LAB REF 17:20
PROVIDERS: ATTEND Nurse Practitioner Family
DX: D50.9 Iron deficiency anemia, unspecified (principal)

== ENCOUNTER → 2024-06-19 | Outpatient (CLI) | payer MEDICARE | LOC: M WHC 13:17 | PROVIDERS: ATTEND Registered Nurse | DX: Z12.31 Encounter for screening mammogram for malignant neoplasm of breast (principal); M85.851 Other specified disorders of bone density and structure, right thigh ==

== ENCOUNTER → 2024-06-26 | Outpatient (REF) | payer MEDICARE ==
[2024-06-26 20:11] LABS: PERCENT SATURATION 20.7 % (13.2-45.0)
[2024-06-26 20:14] LABS: FERRITIN 143.9 NG/ML (7.3-270.7)
== END ==
LOC: M LAB REF 17:20
PROVIDERS: ATTEND Nurse Practitioner Family
DX: D50.9 Iron deficiency anemia, unspecified (principal)

== ENCOUNTER → 2024-09-04 | Outpatient (REF) | payer MEDICARE ==
[2024-09-04 19:02] LABS: FERRITIN 148.3 NG/ML (7.3-270.7); PERCENT SATURATION 18.2 % (13.2-45.0)
== END ==
LOC: M LAB REF 17:03
PROVIDERS: ATTEND Nurse Practitioner Family
DX: D50.9 Iron deficiency anemia, unspecified (principal)

== ENCOUNTER → 2024-10-13 | Outpatient (REF) | payer MEDICARE ==
[2024-10-14 17:41] LABS: HEPATITIS B SURFACE ANTIBODY NEGATIVE (POSITIVE)
[2024-10-14 17:53] LABS: HEPATITIS B SURFACE ANTIGEN NEGATIVE (NEGATIVE)
[2024-10-14 18:14] LABS: HEPATITIS B CORE ANTIBODY IGM NEGATIVE (NEGATIVE); HEPATITIS C VIRUS ABY INDEX 0.04 INDEX (<0.8)
== END ==
LOC: M LAB REF 17:02
PROVIDERS: ATTEND Nurse Practitioner Family
DX: N18.5 Chronic kidney disease, stage 5 (principal); Z11.59 Encounter for screening for other viral diseases

== ENCOUNTER → 2024-10-23 | Outpatient (CLI) | payer MEDICARE ==
[~2024-10-23] MED LIST changes: +ONDANSETRON 4MG 2ML VIAL As Ordered ONE
[2024-10-23 08:18] VITALS: TEMP 97.8
[2024-10-23] MEDS: NS (Normal Saline) 0.9% 1,000 ML IV SCH (08:25)
[2024-10-23] MEDS: ceFAZolin SODIUM 2 GM in DEXTROSE 5% (D5W) ADV/MINI-BAG 50 ML IV ONE (09:20)
[2024-10-23] MEDS: MIDAZOLAM INJ 2MG/2ML VIAL IV PRN (09:20)
[2024-10-23] MEDS: fentaNYL 100 MCG/2 ML INJECTION IV PRN (09:21)
[2024-10-23] MEDS: ONDANSETRON 4MG 2ML VIAL IV STA (09:27)
[2024-10-23] MEDS: LIDOCAINE 1% MDV 20ML VIAL SC ONE (09:31)
[2024-10-23] MEDS: HEPARIN 1,000UNITS/ML 10ML VIAL (FOR RADIOLOGY & DIALYSIS ONLY) IV PRN (09:31)
[2024-10-23 10:00] VITALS: BP 125/57; O2SAT 96
== END ==
LOC: M IRPRO 08:14
PROVIDERS: ATTEND Nurse Practitioner Family
DX: N18.9 Chronic kidney disease, unspecified (principal)
CPT/HCPCS: 36561; 99152; C1894; J0690; J2250; J2405; J3010

== ENCOUNTER → 2024-11-04 | Outpatient (CLI) | payer MEDICARE ==
[~2024-11-04] MED LIST changes: -ONDANSETRON 4MG 2ML VIAL As Ordered ONE
== END ==
LOC: M RAD 09:07
PROVIDERS: ATTEND Registered Nurse
DX: M11.231 Other chondrocalcinosis, right wrist (principal); M19.041 Primary osteoarthritis, right hand; M19.011 Primary osteoarthritis, right shoulder; M25.711 Osteophyte, right shoulder

== ENCOUNTER 2025-04-19 05:49 | Observation (INO) | payer MEDICARE ==
[~2025-04-19] VITALS: Ht 144.8 cm; Wt 62.5 kg
[2025-04-19 06:20] LABS: VENOUS BASE EXCESS -2.3 (-2.0-2.0); VENOUS HCO3 23.1 MMOL/L (23.0-27.0); VENOUS O2 SATURATION 69.8 % (60.0-80.0); VENOUS PARTIAL PRESSURE CO2 41.9 mmHg (38.0-50.0); VENOUS PARTIAL PRESSURE O2 37.5 mmHg (30.0-50.0); VENOUS PH 7.359 UNITS (7.330-7.430); VENOUS STANDARD HCO3 22.0 MMOL/L; VENOUS TOTAL CO2 24.4 MMOL/L (24.0-28.0)
[2025-04-19 06:35] LABS: BASO # 0.1 10^3/uL (0.0-0.2); BASO % 0.6 % (0.0-1.0); EOS # 0.1 10^3/uL (0.0-0.5); EOS % 1.2 % (0.0-3.0); LYMPH # 1.6 10^3/uL (1.5-5.0); LYMPH % 15.1 % (24.0-44.0); MONO # 0.5 10^3/uL (0.0-0.8); MONO % 4.5 % (2.0-8.0); NEUTROPHILS # 8.4 10^3/uL (1.5-8.5); NEUTROPHILS % 78.2 % (36.0-66.0); PLATELET COUNT, AUTOMATED 266 10^3/uL (150-450)
[2025-04-19 07:00] LABS: ALT/SGPT 20.0 U/L (7.0-40); AST/SGOT 25.0 U/L (<34); CALCIUM LEVEL 9.2 MG/DL (8.3-10.6); CARBON DIOXIDE LEVEL 24.0 MMOL/L (20-31); CHLORIDE LEVEL 102.0 MMOL/L (98-107); CK-MB VALUE MASS 3.9 NG/ML (<3.6); CPK CREATINE PHOSPHOKINASE 70.0 U/L (34-145); CREATININE FOR GFR 4.74 MG/DL (0.55-1.30); GLOMERULAR FILTRATION RATE 8.6 (>32); MB/CK RELATIVE INDEX 5.57 (< OR =4); POTASSIUM SERUM 4.3 MMOL/L (3.5-5.1); SODIUM LEVEL 141.0 MMOL/L (136-145)
[2025-04-19] MEDS ORDERED: LORA-1164 PO (08:28)
[2025-04-19] MEDS ORDERED: SODI650T PO (08:28)
[2025-04-19] MEDS ORDERED: CALC1CAP PO (08:28)
[2025-04-19] MEDS ORDERED: HOME MED LIST COMPLETE! XX SCH (08:30)
[2025-04-19] MEDS: FUROSEMIDE 40 MG/4 ML VIAL IV ONE (09:19)
[2025-04-19] MEDS: FUROSEMIDE 100 MG/10 ML VIAL IV ONE (12:57)
[2025-04-19 14:24] VITALS: O2SAT 79
[2025-04-19] MEDS ORDERED: SODIUM CHLORIDE 0.9% 1000 ML IV PRN (18:35)
[2025-04-19] MEDS ORDERED: HEPARIN 1,000 UNITS/ML 10 ML VIAL (FOR RADIOLOGY & DIALYSIS ONLY) IV PRN (18:35)
[2025-04-19] MEDS: HEPARIN 1,000 UNITS/ML 10 ML VIAL (FOR RADIOLOGY & DIALYSIS ONLY) XX SCH (20:17)
[2025-04-19 23:11] VITALS: BP 139/86; TEMP 97.5; O2SAT 100
[2025-04-19] MEDS: SODIUM BICARBONATE 325 MG TAB PO SCH (23:30)
[2025-04-19] MEDS: MAGNESIUM GLUCONATE 500 MG TAB PO SCH (23:30)
[2025-04-19] MEDS: FAMOTIDINE 20 MG TAB PO SCH (23:30)
[2025-04-19] MEDS: FUROSEMIDE 100 MG/10 ML VIAL IV SCH (23:31)
[2025-04-19] MEDS: HEPARIN SOD 5000 UNITS/ML 1 ML VIAL/SYRINGE SQ SCH (23:31)
[2025-04-20 03:17] VITALS: BP 136/85; TEMP 97; O2SAT 93
[2025-04-20] MEDS ORDERED: IPRATROPIUM 0.5 MG/ALBUTEROL 2.5 MG INH SOL UD 3 ML NEB PRN (06:20)
[2025-04-20 06:37] VITALS: O2SAT 95
[2025-04-20] MEDS: LEVOTHYROXINE 88 MCG TABLET (0.088 MG) PO SCH (06:39)
[2025-04-20 07:22] LABS: PLATELET COUNT, AUTOMATED 221 10^3/uL (150-450)
[2025-04-20 07:48] LABS: CALCIUM LEVEL 9.7 MG/DL (8.3-10.6); CARBON DIOXIDE LEVEL 23.0 MMOL/L (20-31); CHLORIDE LEVEL 104.0 MMOL/L (98-107); CREATININE FOR GFR 3.59 MG/DL (0.55-1.30); GLOMERULAR FILTRATION RATE 12.0 (>32); MAGNESIUM LEVEL 2.5 MG/DL (1.8-2.4); PHOSPHORUS LEVEL 2.3 MG/DL (2.4-5.1); POTASSIUM SERUM 4.4 MMOL/L (3.5-5.1); SODIUM LEVEL 140.0 MMOL/L (136-145)
[2025-04-20] MEDS: SYMBICORT 80/4.5MCG INHALER 6GM INH SCH (08:18)
[2025-04-20] MEDS: IPRATROPIUM 0.5 MG/ALBUTEROL 2.5 MG INH SOL UD 3 ML NEB SCH (08:19)
[2025-04-20] MEDS: CALCIUM ACETATE 667 MG GELCAP PO SCH (08:46)
[2025-04-20] MEDS: VENLAFAXINE **XR** 75MG CAPSULE PO SCH (08:47)
[2025-04-20] MEDS: ATORVASTATIN 20 MG TAB PO SCH (08:47)
[2025-04-20] MEDS: LORATADINE 10 MG TAB PO SCH (08:47)
[2025-04-20 08:50] VITALS: BP 140/87
[2025-04-20] MEDS: METOPROLOL SUCC. 25 MG *XL* TAB PO SCH (08:50)
[2025-04-20 09:42] VITALS: BP 141/88; TEMP 97.2; O2SAT 95
[2025-04-20 12:00] VITALS: BP 125/70; TEMP 97.3; O2SAT 94
== END 2025-04-20 14:18 | disposition home or self-care (01) ==
LOC: M ED 05:49 → M ED INP 05:50 → M MSPAV 23:06
PROVIDERS: ADMIT Family Medicine; ATTEND Internal Medicine
DX: E87.70 Fluid overload, unspecified (principal); E03.9 Hypothyroidism, unspecified; N18.6 End stage renal disease; M10.9 Gout, unspecified; E78.5 Hyperlipidemia, unspecified; I12.0 Hypertensive chronic kidney disease with stage 5 chronic kidney disease or end stage renal disease; Z87.891 Personal history of nicotine dependence; Z79.899 Other long term (current) drug therapy; J45.909 Unspecified asthma, uncomplicated
CPT/HCPCS: 36415; 71045; 80048; 80069; 80076; 82550; 82553; 82803; 83605; 83735; 83880; 84484; 85025; 85027; 87040; 87486; 87581; 87633; 87798; 90935; 93005; 93041; 94640; 94760; 96372; 96374; 96376; 99285; G0378; J1938